=== PATIENT | male | born 1995 | race Caucasian/White ===

== ENCOUNTER 2018-01-16 21:49 | Emergency (ER) | payer BC, OTHER ==
[2018-01-16 21:53] VITALS: BP 138/88; PULSE 69; RESP 18; TEMP 98.3
[2018-01-16] MEDS ORDERED: TOBRAMYCIN 0.3% OPHTH OINT 3.5 GM TUBE RIGHT EYE STA (22:00)
[2018-01-16] MEDS ORDERED: diphenhydrAMINE 50 MG CAP PO STA (22:00)
[2018-01-16] MEDS ORDERED: predniSONE 50 MG TAB PO STA (22:00)
--- NOTE | 2018-01-16 22:03 | ED ---
Eye Problem HPI - General Chief complaint: Eye Problems Stated complaint: right eye pain Time Seen by Provider: 01/16/18 21:54 Source: patient Mode of arrival: ambulatory Limitations: no limitations - History of Present Illness Initial comments: 22-year-old male patient presents to the emergency department today for evaluation of right eye redness and lower lid swelling. Patient states this started approximately 2 hours ago while [place] Patient states initially he felt like there is a foreign body to the eye however that feeling has gone and now he is having swelling. He denies any pain or scratching sensation to the eye. Denies any drainage from the eye. Patient denies any history of similar symptoms. Denies any blurred or double vision. He denies any contact with new substances other than plantlike in the [place]. Denies any lip swelling, tongue swelling, or rash. Denies any shortness of breath or wheezing. Patient denies any recent fever, chills, shortness breath, chest pain , abdominal pain, nausea, vomiting, diarrhea, constipation, back pain, numbness , tingling, dizziness, weakness, hematuria, dysuria, urinary urgency, urinary frequency, or any other complaints. - Related Data Previous Rx's Medication Instructions Recorded Ondansetron Odt [Zofran ODT] 4 mg PO Q8HR PRN #5 tab 08/05/15 predniSONE 50 mg PO DAILY #3 tablet 01/16/18 Allergies Allergy/AdvReac Type Severity Reaction Status Date / Time No Known Allergies Allergy Verified 01/16/18 21:53 Review of Systems ROS Statement: Those systems with pertinent positive or pertinent negative responses have been documented in the HPI. ROS Other: All systems not noted in ROS Statement are negative. Past Medical History Past Medical History: No Reported History History of Any Multi-Drug Resistant Organisms: None Reported Past Surgical History: No Surgical Hx Reported Past Psychological History: No Psychological Hx Reported Smoking Status: Never smoker Past Alcohol Use History: None Reported Past Drug Use History: None Reported General Exam Limitations: no limitations General appearance: alert, in no apparent distress, other (This is a well- developed, well-nourished adult male patient in no acute distress. Vital signs upon presentation are temperature 98.3F, pulse 69, respirations 18, blood pressure 138/88, pulse ox 98% on room air.) Eye exam: Present: PERRL, EOMI, conjunctival injection (Right), other (Patient has right lower lid swelling. Some conjunctival injection. No evidence of drainage. No gross injury to the eye. No erythema or cellulitis.). Absent: normal appearance, scleral icterus, periorbital swelling Respiratory exam: Present: normal lung sounds bilaterally. Absent: respiratory distress, wheezes, rales, rhonchi, stridor Cardiovascular Exam: Present: regular rate, normal rhythm, normal heart sounds. Absent: systolic murmur, diastolic murmur, rubs, gallop, clicks Neurological exam: Present: alert, oriented X3, CN II-XII intact Psychiatric exam: Present: normal affect, normal mood Skin exam: Present: warm, dry, intact, normal color. Absent: rash Course Vital Signs 01/16/18 21:50 Temperature 98.3 F Pulse Rate 69 Respiratory 18 Rate Blood Pressure 138/88 O2 Sat by Pulse 98 Oximetry Medical Decision Making - Medical Decision Making 22-year-old male patient presented to the emergency department today for evaluation of right eye swelling. Physical examination did reveal right lower lid swelling and right conjunctival injection. No drainage in the eye. Patient is afebrile, vital signs are stable. Patient has no other symptoms of ALLERGIC reaction. Patient will be treated with prednisone and Benadryl for ALLERGIC reaction. Also give tobramycin ophthalmic ointment for possibility of conjunctivitis. He is instructed to follow-up with the sofa inspector for recheck on Wednesday. Return parameters were discussed in detail. He verbalizes understanding and agrees with this plan. Disposition Clinical Impression: Allergic conjunctivitis Disposition: HOME SELF-CARE Condition: Good Instructions: General Allergic Reaction (ED), Conjunctivitis (ED) Additional Instructions: Use eye ointment 4 times a day while awake, every 4-6 hours. Continue taking Benadryl every 6 hours as needed. Follow-up with sofa inspector for reevaluation on Wednesday. Return here immediately for any new, worsening, or concerning symptoms. Prescriptions: predniSONE 50 mg PO DAILY #3 tablet Is patient prescribed a controlled substance at d/c from ED?: No Referrals: Isra Chandler MD [STAFF PHYSICIAN] - 1-2 days Time of Disposition: 22:03
== END 2018-01-16 22:19 | disposition home or self-care (01) ==
LOC: EC 21:49
DX: H10.11 Acute atopic conjunctivitis, right eye (principal)
CPT/HCPCS: 99282; J7512

== ENCOUNTER 2019-05-02 19:55 | Emergency (ER) | payer BC ==
[2019-05-02] MEDS ORDERED: SODIUM CHLORIDE 0.9% 1,000 ML IV STA (23:03)
[2019-05-02] MEDS ORDERED: KETOROLAC 30 MG/ML 1 ML VIAL IVP STA (23:03)
[2019-05-02] MEDS ORDERED: ONDANSETRON 4 MG/2 ML VIAL IVP STA (23:03)
[2019-05-02] MEDS ORDERED: ACETAMINOPHEN TAB 500 MG TAB PO STA (23:04)
--- NOTE | 2019-05-02 23:31 | XR ---
EXAMINATION TYPE: XR KUB DATE OF EXAM: 05/02/2019 COMPARISON: NONE HISTORY: Abdominal pain TECHNIQUE: 2 views upright FINDINGS: Bowel gas pattern is normal. There is no sign of intestinal obstruction or pneumoperitoneum . Fecal pattern is normal. There is no evidence of a mass. There are no pathologic calcifications ove r the kidneys. Lung bases are clear. IMPRESSION: Nonacute abdomen.
[2019-05-02 23:33] LABS: Basophils # (A) 0.1 k/uL (0-0.2); Basophils % (A) 0 %; Eosinophils # (A) 0.2 k/uL (0-0.7); Eosinophils % (A) 1 %; HCT 41.9 % (39.0-53.0); HGB 14.6 gm/dL (13.0-17.5); Lymphocytes # (A) 0.8 k/uL (1.0-4.8); Lymphocytes % (A) 6 %; MCH 29.1 pg (25.0-35.0); MCHC 34.8 g/dL (31.0-37.0); MCV 83.8 fL (80.0-100.0); Mean Platelet Volume 8.6; Monocytes # (A) 0.4 k/uL (0-1.0); Monocytes % (A) 3 %; Neutrophils % (A) 89 %; Platelet Count 247 k/uL (150-450); RBC 5.01 m/uL (4.30-5.90); WBC 14.6 k/uL (3.8-10.6)
[2019-05-02 23:43] LABS: ALT 18 U/L (4-49); AST 24 U/L (17-59); African American GFR (CKD) >90 (>60 ml/min/1.73 sqM); Albumin 4.5 g/dL (3.5-5.0); Alkaline Phosphatase 96 U/L (38-126); Amylase 32 U/L (30-110); Anion Gap 10 mmol/L; Blood Urea Nitrogen 16 mg/dL (9-20); Calcium 9.3 mg/dL (8.4-10.2); Carbon Dioxide 27 mmol/L (22-30); Chloride 100 mmol/L (98-107); Glucose 116 mg/dL (74-99); Non-African American GFR(CKD) >90 (>60 ml/min/1.73 sqM); Potassium 4.6 mmol/L (3.5-5.1); Sodium 137 mmol/L (137-145); Total Bilirubin 1.6 mg/dL (0.2-1.3); Total Protein 7.7 g/dL (6.3-8.2)
[2019-05-02 23:56] LABS: Appearance,Urine Clear (Clear); Bilirubin,Urine Negative (Negative); Blood,Urine Negative (Negative); Color,Urine Yellow; Glucose,Urine (UA) Negative (Negative); Ketones,Urine Negative (Negative); Leukocyte Esterase,Urine Negative (Negative); Nitrite,Urine Negative (Negative); Protein,Urine Trace (Negative); Specific Gravity,Urine 1.032 (1.001-1.035)
[2019-05-03 00:44] VITALS: BP 126/59; PULSE 99; RESP 18; TEMP 98.5
--- NOTE | 2019-05-03 00:52 | ED ---
Abdominal Pain HPI - General Chief Complaint: Abdominal Pain Stated Complaint: Vomiting Time Seen by Provider: 05/02/19 22:40 Source: patient Mode of arrival: ambulatory Limitations: no limitations - History of Present Illness Initial Comments: 24-year-old male patient presents to the emergency department today for evaluation of vomiting abdominal discomfort. Patient states symptoms started early this afternoon. States he's had 3 episodes of vomiting since symptom onset. Patient was concerned because he did have red in his vomit with the last episode. States he has been chilled, and was febrile in triage. Denies any constipation or diarrhea. Last bowel movement was yesterday was normal. Denies any history of abdominal surgery. Does not take any medications. Denies any recent travel or sick contacts. Patient denies any recent rash, shortness breath, chest pain, back pain, numbness, tingling, dizziness, weakness, hematuria, dysuria, urinary urgency, urinary frequency, headache, visual changes, or any other complaints. - Related Data Previous Rx's Medication Instructions Recorded Ondansetron Odt [Zofran ODT] 4 mg PO Q8HR PRN #5 tab 08/05/15 predniSONE 50 mg PO DAILY #3 tablet 01/16/18 Ondansetron [Zofran ODT] 4 mg PO Q8HR PRN #10 tab 05/03/19 Allergies Allergy/AdvReac Type Severity Reaction Status Date / Time No Known Allergies Allergy Verified 05/02/19 20:07 Review of Systems ROS Statement: Those systems with pertinent positive or pertinent negative responses have been documented in the HPI. ROS Other: All systems not noted in ROS Statement are negative. Past Medical History Past Medical History: No Reported History History of Any Multi-Drug Resistant Organisms: None Reported Past Surgical History: No Surgical Hx Reported Past Psychological History: No Psychological Hx Reported Smoking Status: Never smoker Past Alcohol Use History: None Reported Past Drug Use History: None Reported General Exam Limitations: no limitations General appearance: alert, in no apparent distress, other (This is a well-devel oped, well-nourished adult male patient in no acute distress. Vital signs upon presentation are temperature 101.5F, pulse 122, respirations 22, blood pressure 157/90, pulse ox 99% on room air.) Eye exam: Present: normal appearance, PERRL, EOMI. Absent: scleral icterus, co njunctival injection, periorbital swelling ENT exam: Present: normal exam, normal oropharynx, mucous membranes moist Respiratory exam: Present: normal lung sounds bilaterally. Absent: respiratory distress, wheezes, rales, rhonchi, stridor Cardiovascular Exam: Present: regular rate, normal rhythm, normal heart sounds. Absent: systolic murmur, diastolic murmur, rubs, gallop, clicks GI/Abdominal exam: Present: soft, tenderness (Midepigastric tenderness), normal bowel sounds. Absent: distended, guarding, rebound, rigid Neurological exam: Present: alert, oriented X3, CN II-XII intact Psychiatric exam: Present: normal affect, normal mood Skin exam: Present: warm, dry, intact, normal color. Absent: rash Course Vital Signs 05/02/19 05/03/19 20:06 00:42 Temperature 101.5 F H 98.5 F Pulse Rate 122 H 99 Respiratory 22 18 Rate Blood Pressure 157/90 126/59 O2 Sat by Pulse 99 97 Oximetry Medical Decision Making - Medical Decision Making 24-year-old male patient presents to the emergency department today for evaluation of vomiting and abdominal discomfort. Physical examination did reveal mild midepigastric tenderness. Labs reviewed and did reveal elevated white blood cell count 14.5. Remainder of labs are unremarkable. Temperature did improve with antipyretic medication. I did discuss findings and results with the patient. He'll be discharged to follow-up with his primary care physician for recheck in 1-2 days. Return parameters discussed in detail. He verbalizes understanding and agrees with this plan. - Lab Data Result diagrams: 05/02/19 23:08 05/02/19 23:08 Lab Results 05/02/19 05/02/19 05/02/19 Range/Units 20:05 23:08 23:08 WBC 14.6 H (3.8-10.6) k/uL RBC 5.01 (4.30-5.90) m/uL Hgb 14.6 (13.0-17.5) gm/dL Hct 41.9 (39.0-53.0) % MCV 83.8 (80.0-100.0) fL MCH 29.1 (25.0-35.0) pg MCHC 34.8 (31.0-37.0) g/dL RDW 12.0 (11.5-15.5) % Plt Count 247 (150-450) k/uL Neutrophils % 89 % Lymphocytes % 6 % Monocytes % 3 % Eosinophils % 1 % Basophils % 0 % Neutrophils # 13.0 H (1.3-7.7) k/uL Lymphocytes # 0.8 L (1.0-4.8) k/uL Monocytes # 0.4 (0-1.0) k/uL Eosinophils # 0.2 (0-0.7) k/uL Basophils # 0.1 (0-0.2) k/uL Sodium 137 (137-145) mmol/L Potassium 4.6 (3.5-5.1) mmol/L Chloride 100 (98-107) mmol/L Carbon Dioxide 27 (22-30) mmol/L Anion Gap 10 mmol/L BUN 16 (9-20) mg/dL Creatinine 0.64 L (0.66-1.25) mg/dL Est GFR (CKD-EPI)AfAm >90 (>60 ml/min/1.73 sqM) Est GFR (CKD-EPI)NonAf >90 (>60 ml/min/1.73 sqM) Glucose 116 H (74-99) mg/dL Calcium 9.3 (8.4-10.2) mg/dL Total Bilirubin 1.6 H (0.2-1.3) mg/dL AST 24 (17-59) U/L ALT 18 (4-49) U/L Alkaline Phosphatase 96 (38-126) U/L Total Protein 7.7 (6.3-8.2) g/dL Albumin 4.5 (3.5-5.0) g/dL Amylase 32 (30-110) U/L Lipase 32 (23-300) U/L Urine Color Urine Appearance (Clear) Urine pH (5.0-8.0) Ur Specific [place] (1.001-1.035) Urine Protein (Negative) Urine Glucose (UA) (Negative) Urine Ketones (Negative) Urine Blood (Negative) Urine Nitrite (Negative) Urine Bilirubin (Negative) Urine Urobilinogen (<2.0) mg/dL Ur Leukocyte Esterase (Negative) Influenza Type A RNA Not Detected (Not Detectd) Influenza Type B (PCR) Not Detected (Not Detectd) 05/02/19 Range/Units 23:08 WBC (3.8-10.6) k/uL RBC (4.30-5.90) m/uL Hgb (13.0-17.5) gm/dL Hct (39.0-53.0) % MCV (80.0-100.0) fL MCH (25.0-35.0) pg MCHC (31.0-37.0) g/dL RDW (11.5-15.5) % Plt Count (150-450) k/uL Neutrophils % % Lymphocytes % % Monocytes % % Eosinophils % % Basophils % % Neutrophils # (1.3-7.7) k/uL Lymphocytes # (1.0-4.8) k/uL Monocytes # (0-1.0) k/uL Eosinophils # (0-0.7) k/uL Basophils # (0-0.2) k/uL Sodium (137-145) mmol/L Potassium (3.5-5.1) mmol/L Chloride (98-107) mmol/L Carbon Dioxide (22-30) mmol/L Anion Gap mmol/L BUN (9-20) mg/dL Creatinine (0.66-1.25) mg/dL Est GFR (CKD-EPI)AfAm (>60 ml/min/1.73 sqM) Est GFR (CKD-EPI)NonAf (>60 ml/min/1.73 sqM) Glucose (74-99) mg/dL Calcium (8.4-10.2) mg/dL Total Bilirubin (0.2-1.3) mg/dL AST (17-59) U/L ALT (4-49) U/L Alkaline Phosphatase (38-126) U/L Total Protein (6.3-8.2) g/dL Albumin (3.5-5.0) g/dL Amylase (30-110) U/L Lipase (23-300) U/L Urine Color Yellow Urine Appearance Clear (Clear) Urine pH 7.0 (5.0-8.0) Ur Specific [place] 1.032 (1.001-1.035) Urine Protein Trace H (Negative) Urine Glucose (UA) Negative (Negative) Urine Ketones Negative (Negative) Urine Blood Negative (Negative) Urine Nitrite Negative (Negative) Urine Bilirubin Negative (Negative) Urine Urobilinogen 3.0 (<2.0) mg/dL Ur Leukocyte Esterase Negative (Negative) Influenza Type A RNA (Not Detectd) Influenza Type B (PCR) (Not Detectd) - Radiology Data Radiology results: report reviewed, image reviewed KUB was obtained. Report is reviewed in its entirety. Impression by Dr. Ackerman shows nonacute abdomen Disposition Clinical Impression: Vomiting, Fever Disposition: HOME SELF-CARE Condition: Good Instructions (If sedation given, give patient instructions): Fever in Adults (ED), Acute Nausea and Vomiting (ED) Additional Instructions: Take medications as directed. Take Tylenol and Motrin for fever control. He can take these medications every 6 hours. Start with clear liquid diet and advance as tolerated. Follow-up with your primary care physician for recheck in 1-2 days. Return to the emergency department immediately for any new, worsening, or concerning symptoms. Prescriptions: Ondansetron [Zofran ODT] 4 mg PO Q8HR PRN #10 tab PRN Reason: Nausea Is patient prescribed a controlled substance at d/c from ED?: No Referrals: None,Stated [Primary Care Provider] - 1-2 days Time of Disposition: 00:51
== END 2019-05-03 01:16 | disposition home or self-care (01) ==
LOC: EC 19:55
DX: R11.10 Vomiting, unspecified (principal); R50.9 Fever, unspecified; D72.829 Elevated white blood cell count, unspecified
CPT/HCPCS: 36415; 80053; 82150; 83690; 85025; 81003; 87502; 74018; 99284; 96374; 96375; 96361 ×2; J2405; J1885

== ENCOUNTER 2021-11-24 21:10 | Observation (INO) | payer BC ==
[2021-11-25] MEDS ORDERED: VANCOMYCIN IV PER PHARMACY 1 EACH MISC MISCELLANE PRN (00:05)
[2021-11-25] MEDS ORDERED: MORPHINE SULFATE 4 MG/ML SYRINGE IV STA (00:05)
[2021-11-25] MEDS ORDERED: SODIUM CHLORIDE 0.9% 1,000 ML IV STA ×2 (00:05)
--- NOTE | 2021-11-25 00:06 | ED ---
Skin/Abscess/FB HPI - General Chief complaint: Skin/Abscess/Foreign Body Stated complaint: ABCESS ON BACK Time Seen by Provider: 11/24/21 23:55 Source: patient Mode of arrival: ambulatory Limitations: no limitations - Related Data Previous Rx's Medication Instructions Recorded Ondansetron Odt [Zofran ODT] 4 mg PO Q8HR PRN #5 tab 08/05/15 predniSONE 50 mg PO DAILY #3 tablet 01/16/18 Ondansetron [Zofran ODT] 4 mg PO Q8HR PRN #10 tab 05/03/19 Allergies Allergy/AdvReac Type Severity Reaction Status Date / Time No Known Allergies Allergy Verified 11/24/21 21:50 Review of Systems ROS Statement: Those systems with pertinent positive or pertinent negative responses have been documented in the HPI. ROS Other: All systems not noted in ROS Statement are negative. Past Medical History Past Medical History: No Reported History History of Any Multi-Drug Resistant Organisms: None Reported Past Surgical History: No Surgical Hx Reported Past Psychological History: No Psychological Hx Reported Smoking Status: Never smoker Past Alcohol Use History: Occasional Past Drug Use History: None Reported General Exam Limitations: no limitations Course Vital Signs 11/24/21 21:50 Temperature 99.0 F Pulse Rate 102 H Respiratory 18 Rate Blood Pressure 163/97 O2 Sat by Pulse 97 Oximetry Medical Decision Making - Lab Data Result diagrams: 11/25/21 00:54 11/25/21 00:54 Lab Results 11/25/21 11/25/21 11/25/21 Range/Units 00:54 00:54 00:54 WBC 13.4 H (3.8-10.6) k/uL RBC 4.71 (4.30-5.90) m/uL Hgb 14.1 (13.0-17.5) gm/dL Hct 40.7 (39.0-53.0) % MCV 86.4 (80.0-100.0) fL MCH 30.0 (25.0-35.0) pg MCHC 34.7 (31.0-37.0) g/dL RDW 12.6 (11.5-15.5) % Plt Count 235 (150-450) k/uL MPV 8.9 Neutrophils % 70 % Lymphocytes % 21 % Monocytes % 4 % Eosinophils % 2 % Basophils % 0 % Neutrophils # 9.3 H (1.3-7.7) k/uL Lymphocytes # 2.8 (1.0-4.8) k/uL Monocytes # 0.6 (0-1.0) k/uL Eosinophils # 0.3 (0-0.7) k/uL Basophils # 0.1 (0-0.2) k/uL PT 10.9 (9.0-12.0) sec INR 1.0 (<1.2) APTT 25.3 (22.0-30.0) sec Sodium 138 (137-145) mmol/L Potassium 3.8 (3.5-5.1) mmol/L Chloride 104 (98-107) mmol/L Carbon Dioxide 24 (22-30) mmol/L Anion Gap 10 mmol/L BUN 12 (9-20) mg/dL Creatinine 0.62 L (0.66-1.25) mg/dL Est GFR (CKD-EPI)AfAm >90 (>60 ml/min/1.73 sqM) Est GFR (CKD-EPI)NonAf >90 (>60 ml/min/1.73 sqM) Glucose 106 H (74-99) mg/dL Plasma Lactic Acid Don (0.7-2.0) mmol/L Calcium 9.1 (8.4-10.2) mg/dL Phosphorus 4.2 (2.5-4.5) mg/dL Magnesium 2.0 (1.6-2.3) mg/dL Total Bilirubin 0.9 (0.2-1.3) mg/dL AST 19 (17-59) U/L ALT 15 (4-49) U/L Alkaline Phosphatase 87 (38-126) U/L Total Protein 7.9 (6.3-8.2) g/dL Albumin 4.5 (3.5-5.0) g/dL 11/25/21 Range/Units 00:54 WBC (3.8-10.6) k/uL RBC (4.30-5.90) m/uL Hgb (13.0-17.5) gm/dL Hct (39.0-53.0) % MCV (80.0-100.0) fL MCH (25.0-35.0) pg MCHC (31.0-37.0) g/dL RDW (11.5-15.5) % Plt Count (150-450) k/uL MPV Neutrophils % % Lymphocytes % % Monocytes % % Eosinophils % % Basophils % % Neutrophils # (1.3-7.7) k/uL Lymphocytes # (1.0-4.8) k/uL Monocytes # (0-1.0) k/uL Eosinophils # (0-0.7) k/uL Basophils # (0-0.2) k/uL PT (9.0-12.0) sec INR (<1.2) APTT (22.0-30.0) sec Sodium (137-145) mmol/L Potassium (3.5-5.1) mmol/L Chloride (98-107) mmol/L Carbon Dioxide (22-30) mmol/L Anion Gap mmol/L BUN (9-20) mg/dL Creatinine (0.66-1.25) mg/dL Est GFR (CKD-EPI)AfAm (>60 ml/min/1.73 sqM) Est GFR (CKD-EPI)NonAf (>60 ml/min/1.73 sqM) Glucose (74-99) mg/dL Plasma Lactic Acid Don 1.1 (0.7-2.0) mmol/L Calcium (8.4-10.2) mg/dL Phosphorus (2.5-4.5) mg/dL Magnesium (1.6-2.3) mg/dL Total Bilirubin (0.2-1.3) mg/dL AST (17-59) U/L ALT (4-49) U/L Alkaline Phosphatase (38-126) U/L Total Protein (6.3-8.2) g/dL Albumin (3.5-5.0) g/dL Disposition Clinical Impression: Rectal abscess, Abscess, Leukocytosis Disposition: ADMITTED IP TO THIS HOSP Condition: Good Is patient prescribed a controlled substance at d/c from ED?: No Referrals: Richardson Esparza MD [Primary Care Provider] - 1-2 days
[2021-11-25] MEDS ORDERED: VANCOMYCIN 2,250 MG in SODIUM CHLORIDE 0.9% 500 ML 500 ML IVPB ONE (01:00)
[2021-11-25 01:09] LABS: Basophils # (A) 0.1 k/uL (0-0.2); Basophils % (A) 0 %; Eosinophils # (A) 0.3 k/uL (0-0.7); Eosinophils % (A) 2 %; HCT 40.7 % (39.0-53.0); HGB 14.1 gm/dL (13.0-17.5); Lymphocytes # (A) 2.8 k/uL (1.0-4.8); Lymphocytes % (A) 21 %; MCHC 34.7 g/dL (31.0-37.0); MCV 86.4 fL (80.0-100.0); Mean Platelet Volume 8.9; Monocytes # (A) 0.6 k/uL (0-1.0); Monocytes % (A) 4 %; Neutrophils # (A) 9.3 k/uL (1.3-7.7); Neutrophils % (A) 70 %; Platelet Count 235 k/uL (150-450); RBC 4.71 m/uL (4.30-5.90); RDW 12.6 % (11.5-15.5); WBC 13.4 k/uL (3.8-10.6)
[2021-11-25] MEDS ORDERED: diphenhydrAMINE 50 MG/ML 1 ML VIAL IVP STA (01:17)
[2021-11-25 01:20] LABS: ALT 15 U/L (4-49); AST 19 U/L (17-59); African American GFR (CKD) >90 (>60 ml/min/1.73 sqM); Albumin 4.5 g/dL (3.5-5.0); Alkaline Phosphatase 87 U/L (38-126); Anion Gap 10 mmol/L; Blood Urea Nitrogen 12 mg/dL (9-20); Calcium 9.1 mg/dL (8.4-10.2); Carbon Dioxide 24 mmol/L (22-30); Chloride 104 mmol/L (98-107); Glucose 106 mg/dL (74-99); Non-African American GFR(CKD) >90 (>60 ml/min/1.73 sqM); Partial Thromboplastin Time 25.3 sec (22.0-30.0); Phosphorus 4.2 mg/dL (2.5-4.5); Potassium 3.8 mmol/L (3.5-5.1); Prothrombin Time 10.9 sec (9.0-12.0); Sodium 138 mmol/L (137-145); Total Bilirubin 0.9 mg/dL (0.2-1.3); Total Protein 7.9 g/dL (6.3-8.2)
--- NOTE | 2021-11-25 03:12 | CT ---
EXAMINATION TYPE: CT pelvis w con DATE OF EXAM: 11/25/2021 COMPARISON: None HISTORY: abscess CT DLP: 2145.8 mGycm Automated exposure control for dose reduction was used. CONTRAST: Performed with IV Contrast, patient injected with 100ml mL of Isovue 300. Images obtained from the iliac crests to the subtrochanteric femurs with IV contrast. The bony pelvis is intact. Bladder distends smoothly. No pelvic mass. No free fluid in the pelvis. No intestinal wall thickening. Appendix is normal. No ascites. No evidence of inguinal hernia. There ar e a few bilateral renal lymph nodes that measure up to 2 cm. There is 5 x 4 cm fluid collection in the subcutaneous fat posterior to the lower sacrum in the midli ne. There is some fat stranding around the fluid. No soft tissue air. No evidence of focal bone destr uction. The sacrum is intact. Coccyx is intact. IMPRESSION: Low-density fluid collection with surrounding inflammatory reaction in the midline posterior subcutan eous tissues is consistent with an abscess. Normal appendix. No significant abnormality within the abdomen and pelvis. There are a few prominent bilateral inguinal lymph nodes.
[2021-11-25] MEDS ORDERED: ONDANSETRON 4 MG/2 ML VIAL IVP PRN (03:27)
[2021-11-25] MEDS ORDERED: MORPHINE SULFATE 4 MG/ML SYRINGE IVP PRN (03:27)
[2021-11-25] MEDS ORDERED: KETOROLAC 15 MG/ML 1 ML VIAL IVP STA (03:42)
[2021-11-25] MEDS ORDERED: ACETAMINOPHEN IV (For NPO) 1,000 MG in EMPTY BAG 1 BAG IVPB STA (03:42)
--- NOTE | 2021-11-25 08:21 | P.HPIM ---
History of Present Illness H&P Date: 11/25/21 Chief Complaint: Rectal pain The patient is 26-year-old white male who admits that the pain for last several days. Requiring pain medication. Unable to sit. Evaluation emergency room did show rectal abscess. No fever. No previous history of issue in that area of his body Review of Systems Constitutional: Denies chills, Denies fever Eyes: denies blurred vision, denies pain Ears, nose, mouth and throat: Denies headache, Denies sore throat Cardiovascular: Denies chest pain, Denies shortness of breath Respiratory: Denies cough Gastrointestinal: Reports as per HPI Musculoskeletal: Denies myalgias Past Medical History Past Medical History: No Reported History History of Any Multi-Drug Resistant Organisms: None Reported Past Surgical History: No Surgical Hx Reported Past Psychological History: No Psychological Hx Reported Smoking Status: Never smoker Past Alcohol Use History: Occasional Past Drug Use History: None Reported Medications and Allergies Home Medications Medication Instructions Recorded Confirmed Type No Known Home Medications 11/25/21 11/25/21 History Allergies Allergy/AdvReac Type Severity Reaction Status Date / Time No Known Allergies Allergy Verified 11/25/21 07:23 Physical Exam Vitals: Vital Signs Temp Pulse Resp BP Pulse Ox 11/25/21 06:16 77 22 108/58 98 11/24/21 21:50 99.0 F 102 H 18 163/97 97 Intake and Output 11/24/21 11/25/21 11/25/21 22:59 06:59 14:59 Other: Weight 141.521 kg - Constitutional General appearance: no acute distress - EENT Eyes: EOMI - Neck Neck: no lymphadenopathy - Respiratory Respiratory: bilateral: CTA - Cardiovascular Rhythm: regular Heart sounds: normal: S1, S2 Abnormal Heart Sounds: no S3 Gallop - Gastrointestinal Rectal abscess noted General gastrointestinal: soft, no tenderness - Psychiatric Psychiatric: A&O x's 3 Results CBC & Chem 7: 11/25/21 00:54 11/25/21 00:54 Labs: Abnormal Lab Results - Last 24 Hours (Table) 11/25/21 11/25/21 Range/Units 00:54 00:54 WBC 13.4 H (3.8-10.6) k/uL Neutrophils # 9.3 H (1.3-7.7) k/uL Creatinine 0.62 L (0.66-1.25) mg/dL Glucose 106 H (74-99) mg/dL Assessment and Plan (1) Leukocytosis Current Visit: Yes Status: Acute Code(s): D72.829 - ELEVATED WHITE BLOOD CELL COUNT, UNSPECIFIED SNOMED Code(s): 008708634 (2) Rectal abscess Current Visit: Yes Status: Acute Code(s): K61.1 - RECTAL ABSCESS SNOMED Code(s): 165485625 Plan: Appropriate surgical consult for probable incision and drainage. Empiric antibiotic treatment with pain control. The patient is otherwise full code.
[2021-11-25] MEDS ORDERED: HYDROmorphone 0.5 MG/0.5 ML SYRINGE IVP STA (10:25)
[2021-11-25] MEDS ORDERED: HYDROmorphone 0.5 MG/0.5 ML SYRINGE IVP PRN (11:11)
--- NOTE | 2021-11-25 11:12 | P.GSCN ---
History of Present Illness Consult date: 11/25/21 History of present illness: CHIEF COMPLAINT: Abscess just above the buttocks HISTORY OF PRESENT ILLNESS: This is a 26-year-old male presented to the ER with complaints of pain and swelling above the buttocks 5 days. Patient rates the pain 10 out of 10. Laying on his back or walking was causing increase in the pain. He is never had any history of abscesses. Denies any diabetes or MRSA history. Patient does report some minimal leakage from the abscess. Computed tomography scan of the pelvis demonstrated 5 x 4 cm fluid collection with surrounding inflammatory reaction in the midline posterior subcutaneous tissue consistent with an abscess. Patient did have evidence of a pilonidal cyst. Patient seen and examined with Dr. Mccloud PAST MEDICAL HISTORY: none PAST SURGICAL HISTORY: none MEDICATIONS: See list. ALLERGIES: See list. SOCIAL HISTORY: No illicit drug use. REVIEW OF SYSTEMS: CONSTITUTIONAL: Denies fever or chills. HEENT: Denies blurred vision, vision changes, or eye pain. Denies hemoptysis CARDIOVASCULAR: Denies chest pain or pressure. RESPIRATORY: No shortness of breath. GASTROINTESTINAL: See HPI for pertinent findings HEMATOLOGIC: Denies bleeding disorders. GENITOURINARY: Denies any blood in urine or increased urinary frequency. SKIN: Denies pruitis. Denies rash. PHYSICAL EXAM: VITAL SIGNS: Reviewed GENERAL: Well-developed in no acute distress. HEENT: No sclera icterus. Extraocular movements grossly intact. Moist buccal mucosa. Head is atraumatic, normocephalic. No nasal drainage. ABDOMEN: Soft. Obese. Nondistended. Nontender NEUROLOGIC: Alert and oriented. Cranial nerves II through XII grossly intact. Skin: Evidence of pilonidal cyst. There is a small area of induration and it is fluctuant located in the lowers sacrum above the buttocks LABORATORY DATA: WBC 13.4 Hgb 14.1 platelets 235 INR 1.0 Sodium is 138 potassium 3.8 creatinine 0.62 Lactic acid 1.1 IMAGING: Computed tomography scan as stated above ASSESSMENT: 1. Pilonidal cyst PLAN: -Patient is status post incision and drainage of pilonidal cyst at bedside by Dr. Mccloud. The area has been packed with gauze and dressing applied. -Continue local wound care -Continue antibiotics -Continue pain medication as needed Thank you for this consultation Physician Child Development Specialist note has been reviewed by physician. Signing provider agrees with the documented findings, assessment, and plan of care. Past Medical History Past Medical History: No Reported History History of Any Multi-Drug Resistant Organisms: None Reported Past Surgical History: No Surgical Hx Reported Past Psychological History: No Psychological Hx Reported Smoking Status: Never smoker Past Alcohol Use History: Occasional Past Drug Use History: None Reported Medications and Allergies Home Medications Medication Instructions Recorded Confirmed Type No Known Home Medications 11/25/21 11/25/21 History Allergies Allergy/AdvReac Type Severity Reaction Status Date / Time No Known Allergies Allergy Verified 11/25/21 07:23 Surgical - Exam Vital Signs Temp Pulse Resp BP Pulse Ox 99.0 F 102 H 18 163/97 97 11/24/21 21:50 11/24/21 21:50 11/24/21 21:50 11/24/21 21:50 11/24/21 21:50 Results - Labs 11/25/21 00:54 11/25/21 00:54 Abnormal Lab Results - Last 24 Hours (Table) 11/25/21 11/25/21 Range/Units 00:54 00:54 WBC 13.4 H (3.8-10.6) k/uL Neutrophils # 9.3 H (1.3-7.7) k/uL Creatinine 0.62 L (0.66-1.25) mg/dL Glucose 106 H (74-99) mg/dL Diabetes panel 11/25/21 Range/Units 00:54 Sodium 138 (137-145) mmol/L Potassium 3.8 (3.5-5.1) mmol/L Chloride 104 (98-107) mmol/L Carbon Dioxide 24 (22-30) mmol/L BUN 12 (9-20) mg/dL Creatinine 0.62 L (0.66-1.25) mg/dL Glucose 106 H (74-99) mg/dL Calcium 9.1 (8.4-10.2) mg/dL AST 19 (17-59) U/L ALT 15 (4-49) U/L Alkaline Phosphatase 87 (38-126) U/L Total Protein 7.9 (6.3-8.2) g/dL Albumin 4.5 (3.5-5.0) g/dL Calcium panel 11/25/21 Range/Units 00:54 Calcium 9.1 (8.4-10.2) mg/dL Phosphorus 4.2 (2.5-4.5) mg/dL Albumin 4.5 (3.5-5.0) g/dL Pituitary panel 11/25/21 Range/Units 00:54 Sodium 138 (137-145) mmol/L Potassium 3.8 (3.5-5.1) mmol/L Chloride 104 (98-107) mmol/L Carbon Dioxide 24 (22-30) mmol/L BUN 12 (9-20) mg/dL Creatinine 0.62 L (0.66-1.25) mg/dL Glucose 106 H (74-99) mg/dL Calcium 9.1 (8.4-10.2) mg/dL Adrenal panel 11/25/21 Range/Units 00:54 Sodium 138 (137-145) mmol/L Potassium 3.8 (3.5-5.1) mmol/L Chloride 104 (98-107) mmol/L Carbon Dioxide 24 (22-30) mmol/L BUN 12 (9-20) mg/dL Creatinine 0.62 L (0.66-1.25) mg/dL Glucose 106 H (74-99) mg/dL Calcium 9.1 (8.4-10.2) mg/dL Total Bilirubin 0.9 (0.2-1.3) mg/dL AST 19 (17-59) U/L ALT 15 (4-49) U/L Alkaline Phosphatase 87 (38-126) U/L Total Protein 7.9 (6.3-8.2) g/dL Albumin 4.5 (3.5-5.0) g/dL
--- NOTE | 2021-11-25 12:18 | P.OP ---
Date of Procedure: 11/25/21 Preoperative Diagnosis: Pilonidal cyst Postoperative Diagnosis: Pilonidal cyst Procedure(s) Performed: Incision and drainage of pilonidal cyst Anesthesia: local Surgeon: Blu Mccloud Estimated Blood Loss (ml): 5 Pathology: none sent Condition: stable Disposition: floor Description of Procedure: The patient's placed on the bed in the lateral position. Patient's abdominal cyst area was cleaned with Betadine. The skin was anesthetized 1% local Xylocaine. Using 11 blade incision was made over the abscess. A prostate 5 mL of purulent fluid was removed. The abscess Was then packed with wet-to-dry Kerlix. Patient tolerated the procedure well.
[2021-11-25] MEDS: VANCOMYCIN 2,250 MG in SODIUM CHLORIDE 0.9% 500 ML 500 ML IVPB SCH ×2 (12:30→20:11)
[2021-11-25] MEDS ORDERED: KETOROLAC 15 MG/ML 1 ML VIAL IVP SCH (13:00)
[2021-11-25] MEDS: KETOROLAC 15 MG/ML 1 ML VIAL IVP PRN (19:51)
[2021-11-26] MEDS: VANCOMYCIN 2,250 MG in SODIUM CHLORIDE 0.9% 500 ML 500 ML IVPB SCH (03:30)
[2021-11-26 04:31] VITALS: RESP 17
[2021-11-26 05:10] LABS: African American GFR (CKD) >90 (>60 ml/min/1.73 sqM); Non-African American GFR(CKD) >90 (>60 ml/min/1.73 sqM)
--- NOTE | 2021-11-26 08:36 | P.DS ---
Providers Date of admission: 11/25/21 03:26 Attending physician: Richardson Esparza Consults: 11/25/21 03:42 Consult Physician Routine Consulting Provider: Blu Mccloud Consult Reason/Comments: abscess Do you want consulting provider notified?: Yes Primary care physician: Richardson Esparza - Discharge Diagnosis(es) (1) Leukocytosis Current Visit: Yes Status: Acute (2) Rectal abscess Current Visit: Yes Status: Acute Hospital Course: This discharge summary an 26-year-old white male essentially admitted for mild rectal abscess. Incision and drainage was done and is placed on appropriate local care with IV antibiotics. The patient will be discharged in stable condition to follow-up with me in about 5 days. Local care was discussed with the patient and pain control will be given appropriate Patient Condition at Discharge: Good Plan - Discharge Summary Discharge Rx Participant: No New Discharge Prescriptions: New cefUROXime axetiL [Cefuroxime] 500 mg PO BID #5 tab HYDROcodone/APAP 5-325MG [[place] 5-325] 1 tab PO Q6HR PRN 7 Days #30 tab PRN Reason: Pain Discharge Medication List HYDROcodone/APAP 5-325MG [[place] 5-325] 1 tab PO Q6HR PRN 7 Days #30 tab 11/26/21 [Rx] cefUROXime axetiL [Cefuroxime] 500 mg PO BID #5 tab 11/26/21 [Rx] Follow up Appointment(s)/Referral(s): Richardson Esparza MD [Primary Care Provider] - 1-2 days Discharge Disposition: HOME SELF-CARE
[2021-11-26 08:55] VITALS: BP 125/84; PULSE 70; TEMP 98
--- NOTE | 2021-11-26 09:51 | P.PN ---
Subjective Progress Note Date: 11/26/21 CHIEF COMPLAINT: Pilonidal cyst HISTORY OF PRESENT ILLNESS: Patient is status post I&D of cyst. Patient ports his pain has improved. Denies any nausea or vomiting. Tolerating diet. Afebrile. Patient seen and examined with Dr. disla PHYSICAL EXAM: VITAL SIGNS: Reviewed. GENERAL: Well-developed in no acute distress. HEENT: No sclera icterus. Extraocular movements grossly intact. Moist buccal mucosa. Head is atraumatic, normocephalic. ABDOMEN: Soft. Nondistended. Nontender. NEUROLOGIC: Alert and oriented. Cranial nerves II through XII grossly intact. ASSESSMENT: 1. Pilonidal cyst status post incision and drainage PLAN: -Patient can be discharged from surgical standpoint -Recommend oral antibiotics at discharge -Patient shower daily -Change packing daily with wet-to-dry dressing -Recommend home care at discharge Physician [employer] note has been reviewed by physician. Signing provider agrees with the documented findings, assessment, and plan of care. Objective - Vital Signs Vital signs: Vital Signs Temp 98.0 F 11/26/21 07:00 Pulse 70 11/26/21 07:00 Resp 17 11/26/21 07:00 BP 125/84 11/26/21 07:00 Pulse Ox 99 11/26/21 07:00 FiO2 Intake & Output 11/25/21 11/26/21 11/26/21 18:59 06:59 18:59 Intake Total 240 Balance 240 Weight 141.521 kg Intake: Oral 240 Other: Voiding Method Toilet # Voids 1 2 - Labs CBC & Chem 7: 11/25/21 00:54 11/26/21 04:17 Labs: Abnormal Lab Results - Last 24 Hours (Table) 11/26/21 Range/Units 04:17 Creatinine 0.63 L (0.66-1.25) mg/dL Microbiology - Last 24 Hours (Table) 11/25/21 00:40 Blood Culture - Preliminary Blood No Growth after 24 hours 11/25/21 00:55 Blood Culture - Preliminary Blood No Growth after 24 hours
[2021-11-26] MEDS: KETOROLAC 15 MG/ML 1 ML VIAL IVP PRN (11:22)
[2021-11-26] MEDS ORDERED: VANCOMYCIN TROUGH DUE 1 EACH MISC MISCELLANE ONE (18:00)
== END 2021-11-26 11:51 | disposition home health service (06) ==
LOC: EC 21:10 → 6NMEDSUR 11-25 03:26
PROVIDERS: ADMIT Family Medicine; ATTEND Family Medicine
DX: L05.01 Pilonidal cyst with abscess (principal); D72.829 Elevated white blood cell count, unspecified; E66.9 Obesity, unspecified; Z68.41 Body mass index [BMI] 40.0-44.9, adult
CPT/HCPCS: 10080; 96376 ×2; 96366; 96367 ×2; 96365; 96375; 99284; 36415; 80053; 82565; 83605; 83735; 84100; 85025; 85610; 85730; 87040; 72193; G0378 ×2; J3370 ×2; J2270; J1200; J0696 ×3; J0131; J1885 ×2; J1170; Q9967